=== PATIENT | female | born 1965 | race Caucasian/White ===

== ENCOUNTER → 2016-12-25 | Outpatient (CLI) | payer OTHER ==
[~2016-12-25] MED LIST: ACET-1256 PO; ATOR-24 PO; BIOT1TAB5 PO; BUTA1CAP20 PO; DULA0.5I; ESTCR EXT; FRCT/ PO; GLIP-199 PO; GLIP5TAB11 PO; HYDR-3419 PO; PANT40TA PO; PROP20TA67 PO; RANI150T3 PO; RANI1TAB77 PO; SERT-234 PO; SUMA100T16 PO; SUMA50TA15 PO
[2016-12-25 08:22] LABS: ALT/SGPT 27 U/L (12-78); BLOOD UREA NITROGEN 6 mg/dl (7-18); BUN/CREATININE RATIO 8.3 (10-20); CALCIUM 9.4 mg/dl (8.5-10.1); CARBON DIOXIDE 24 mmol/L (21-32); CHLORIDE 102 mmol/L (98-107); CREATININE 0.71 mg/dl (0.60-1.20); GLUCOSE 144 mg/dl (70-99); POTASSIUM 4.4 mmol/L (3.5-5.1); SODIUM 138 mmol/L (136-145)
[2016-12-25 08:33] LABS: ALB/GLOB RATIO 0.9 (0.9-2); ALKALINE PHOSPHATASE 97 U/L (45-117); AST/SGOT 15 U/L (15-37); CHOLESTEROL 170 mg/dl (0-200); CHOLESTEROL/HDL RATIO 4.9; HDL CHOLESTEROL 35 mg/dl; LDL CHOLESTEROL CALCULATED 92 mg/dl; TRIGLYCERIDES 217 mg/dl (0-150); VERY LOW DENSITY LIPOPROT CALC 43 mg/dl
[2016-12-25 09:10] LABS: RATIO 7.1 mcg/mg (0-30.0)
[2016-12-25 10:01] LABS: ESTIMATED AVERAGE GLUCOSE 148 mg/dl; HA1C FLAG Normal (Normal)
== END | disposition home or self-care (01) ==
LOC: C.LABSPEC 07:38
PROVIDERS: ATTEND Family Medicine
DX: E11.65 Type 2 diabetes mellitus with hyperglycemia (principal); E78.5 Hyperlipidemia, unspecified

== ENCOUNTER → 2017-01-24 | Outpatient (CLI) | payer OTHER ==
[~2017-01-24] VITALS: Ht 165.1 cm; Wt 135.9 kg
[2017-01-24 16:12] VITALS: BP 146/89; PULSE 81; Ht 165.1 cm; Wt 135.9 kg
== END | disposition home or self-care (01) ==
LOC: C.NEUR 14:50
PROVIDERS: ATTEND Internal Medicine Pulmonary Disease
DX: G47.33 Obstructive sleep apnea (adult) (pediatric) (principal)

== ENCOUNTER 2017-07-01 07:45 | Emergency (ER) | payer OTHER ==
[~2017-07-01] VITALS: Ht 165.1 cm; Wt 134.7 kg
[~2017-07-01 07:45] MED LIST changes: -BUTA1CAP20 PO; -DULA0.5I; -ESTCR EXT; -FRCT/ PO; -GLIP-199 PO; -PANT40TA PO; -RANI150T3 PO; -RANI1TAB77 PO; -SUMA100T16 PO
[2017-07-01 07:47] VITALS: TEMP 36.4; Ht 165.1 cm; Wt 134.7 kg
[2017-07-01] MEDS ORDERED: ONDANSETRON INJ 2 MG/ML 2 ML VIAL IV STA ×2 (08:05→10:08)
[2017-07-01] MEDS ORDERED: SODIUM CHLORIDE 0.9% 1000ML 1,000 ML IV STA (08:05)
[2017-07-01] MEDS ORDERED: SODIUM CHLORIDE 0.9% 500ML 500 ML IV STA (08:05)
[2017-07-01] MEDS ORDERED: MoRPHine SULFATE 4 MG/ML 1 ML CARP\\VIAL IV STA ×2 (08:05→10:17)
--- NOTE | 2017-07-01 08:12 | EMERGENCY ROOM VISIT NOTE ---
History Report prepared by Janeen: Ewa Escalera Under the Supervision of: Dr. Uma Almonte M.D. First contact with patient: 08:03 Chief Complaint: CHEST PAIN Stated Complaint: ABD./CHEST PAIN Nursing Triage Summary: patient states she started with chest pains over the past couple days. pain radiated into right arm today. nausea and vomiting associated with the pain. "I think it may be my gallbladder" History of Present Illness The patient is a 52 year old female who presents to the Emergency Room with complaints of intermittent central abdominal pain that began one month ago. She currently rates her discomfort as an 8/10 in severity. The patient reports that intermittently she has been having abdominal for the past month. She states that she had previously noticed pain radiating down her left arm, but today she noticed pain radiating into her back and down her right arm. The patient additionally associates nausea and vomiting with her symptoms today. She states that she believes it is her gallbladder, noting that she has an appointment with her primary care physician in a few days. The patient states that her pain worsened last evening. She reports increased pain with deep breathing. The patient states that she only ate a piece of butter bread last night, noting that she was not feeling well. She reports a history of a total hysterectomy, appendectomy, and diabetes. The patient denies any history of a previous [place] or stroke. She denies being a smoker. The patient states that she traveled to [place] in April. She denies any urinary symptoms. Source of History: patient Onset: one month ago Position: abdomen Symptom Intensity: 8/10 Timing: intermittent Modifying Factors (Worsening): breathing (deep) Associated Symptoms: + nausea, + vomiting, No urinary symptoms Review of Systems See HPI for pertinent positives & negatives. A total of 10 systems reviewed and were otherwise negative. Past Medical & Surgical Medical Problems: (1) Brain lesion (2) Depressive Disorder Nec (3) Diverticulosis Colon (W/O Ment Of Hemorrhage) (4) Hx-Analgesic Allergy (5) Hx-Drug Allergy Nec (6) Hyperlipidemia Nec/Nos (7) Hypertension Nos (8) Personal History Of Colonic Polyps (9) TIA (transient ischemic attack) Family History Cancer MOTHER Diabetes mellitus Heart disease Hypertension Kidney disease Kidney stones Social History Smoking Status: Never Smoker Alcohol Use: none Drug Use: none Marital Status: Housing Status: lives with family Occupation Status: employed Current/Historical Medications Scheduled Acetaminophen (Tylenol), 1 TAB PO Q8 Atorvastatin (Lipitor), 40 MG PO DAILY Dulaglutide (Trulicity), 1.5 MG WK Estradiol Vaginal (Estrace), 1 APPLN EXT WK Glipizide (Glucotrol), 1 TAB PO DAILY Pantoprazole (Protonix), 40 MG PO DAILY Propranolol (Inderal), 20 MG PO BID Sertraline (Zoloft), 150 MG PO DAILY Sumatriptan Succinate (Imitrex), 100 MG PO PRN Scheduled PRN Iyvxhybknu-Bznjouwmgksud-Ypvxs (Butalbital/APAP/Caffeine 50-300-40 mg), 1 CAP PO DAILY PRN for Migraine Ranitidine Hcl (Zantac), 150 MG PO BID PRN for gastritis Allergies Coded Allergies: Aspirin (Verified Allergy, Severe, THROAT CLOSES FACE SWELLED, 07/01/17) Ibuprofen (Verified Allergy, Severe, THROAT CLOSED, FACE SWELLED, 07/01/17) Penicillins (Verified Allergy, Unknown, HAD KEFLEX IN PAST WITHOUT PROB- PENICILLIN GIVES HIVES, 07/01/17) Physical Exam Vital Signs Date Time Temp Pulse Resp B/P (MAP) Pulse Ox O2 Delivery O2 Flow Rate FiO2 07/01/17 12:12 65 16 121/69 97 07/01/17 11:17 63 16 143/72 94 Room Air 07/01/17 10:28 67 22 132/86 96 Room Air 07/01/17 10:00 Room Air 07/01/17 09:52 62 20 110/69 95 Room Air 07/01/17 09:09 69 16 138/73 Room Air 07/01/17 08:29 70 20 141/80 98 Room Air 07/01/17 08:07 75 07/01/17 07:55 Room Air 07/01/17 07:47 96 Room Air 07/01/17 07:47 36.4 86 24 154/112 96 Room Air Physical Exam Vital signs reviewed. General: Obese. Well-appearing female, in some discomfort. HEENT: No scleral icterus, PERRLA, neck supple. Atraumatic. Cardiovascular: Regular rate and rhythm, no extra sounds. Pulmonary: Clear to auscultation bilaterally, normal work of breathing. Abdomen: Soft, tender to palpation over the right upper quadrant and epigastric region, nondistended, positive bowel sounds. Musculoskeletal: Atraumatic, minimal peripheral edema. Neurologic: Patient awake alert and oriented x 3 Skin: Warm, dry, no rash Medical Decision & Procedures ER Provider Diagnostic Interpretation: Radiology results as stated below per my review and radiologist interpretation: GALLBLADDER-ABD LIMITED CLINICAL HISTORY: RUQ pain pain. Nausea. TECHNIQUE: Ultrasound COMPARISON STUDY: None FINDINGS: Normal gallbladder. Common bile duct 4 mm. Fatty infiltration of liver. Poor visibility of the pancreas. Right kidney measures 12 cm maximum dimension. It is negative for hydronephrosis. IMPRESSION: Fatty infiltration of liver. Otherwise normal exam The above report was generated using voice recognition software. It may contain grammatical, syntax or spelling errors. Electronically signed by: Tom Rodriguez M.D. 07/01/2017 9:00 AM Dictated Date/Time: 07/01/2017 8:59 AM CHEST ONE VIEW PORTABLE CLINICAL HISTORY: RUQ/CP pain pain COMPARISON STUDY: 12/23/2014 FINDINGS: Mild stable cardiomegaly. Lungs are clear. Diaphragms are smooth. The calcific angles are sharp. IMPRESSION: Mild stable cardiomegaly. Otherwise negative study The above report was generated using voice recognition software. It may contain grammatical, syntax or spelling errors. Electronically signed by: Tom Rodriguez M.D. 07/01/2017 8:21 AM Dictated Date/Time: 07/01/2017 8:20 AM ABD/PELVIS IV CONTRAST ONLY CLINICAL HISTORY: 52 years-old Female presenting with epigastric abd pain, nausea, symptoms for 1 month. TECHNIQUE: Multidetector CT of the abdomen and pelvis was performed after the administration of intravenous contrast. IV contrast: 93 mL of Optiray 320. A dose lowering technique was used consistent with the principles of ALARA (as low as reasonably achievable). COMPARISON: Correlation made to ultrasound performed the same day. CT DOSE (mGy.cm): The estimated cumulative dose is 1880.83 mGy.cm. FINDINGS: Director Of People topogram: Gastric banding noted. Lung bases: Lung bases clear. No pericardial or pleural effusion. Liver: Normal morphology. Liver density suggestive of hepatic steatosis. No focal lesion. Patent hepatic vasculature. Biliary: No intrahepatic or extrahepatic biliary ductal dilatation. Gallbladder contains gallstones. Pancreas: Mild parenchymal atrophy. Spleen: Top normal in size. Adrenal glands: Normal. Kidneys and ureters: Normal. No hydronephrosis. Bladder: Incompletely evaluated secondary to underdistention. Pelvic organs: Uterus surgically absent. Bowel: Evidence of gastric banding. Minimal fluid and debris in the distal esophagus. No bowel obstruction. The superficial component of the gastric banding device is normal in appearance without associated fluid. The catheter appears intact. Peritoneal cavity: No free fluid or intraperitoneal gas. Vasculature: Atherosclerosis of the normal caliber abdominal aorta. IVC patent. Lymph nodes: No enlarged lymph nodes in the abdomen or pelvis. Abdominal wall: Nonspecific infiltration of the subcutaneous tissue of the lumbar region. Musculoskeletal: Degenerative changes of the spine. Degenerative changes of the sacroiliac joints and pubic symphysis. IMPRESSION: 1. Postsurgical changes of gastric banding. No bowel obstruction or other complication. 2. Hepatic steatosis. Electronically signed by: Everett Ma M.D. 07/01/2017 11:27 AM Dictated Date/Time: 07/01/2017 10:59 AM Laboratory Results 07/01/17 08:09 Red Blood Count 4.56, Mean Corpuscular Volume 90.1, Mean Corpuscular Hemoglobin 30.7, Mean Corpuscular Hemoglobin Concent 34.1, Mean Platelet Volume 9.3, Neutrophils (%) (Auto) 73.6, Lymphocytes (%) (Auto) 19.3, Monocytes (%) (Auto) 4.6, Eosinophils (%) (Auto) 2.0, Basophils (%) (Auto) 0.3, Neutrophils # (Auto) 6.82, Lymphocytes # (Auto) 1.79, Monocytes # (Auto) 0.43, Eosinophils # (Auto) 0.19, Basophils # (Auto) 0.03 07/01/17 08:09 Test 07/01/17 08:09 07/01/17 08:37 07/01/17 10:27 White Blood Count 9.28 K/uL (4.8-10.8) Red Blood Count 4.56 M/uL (4.2-5.4) Hemoglobin 14.0 g/dL (12.0-16.0) Hematocrit 41.1 % (37-47) Mean Corpuscular Volume 90.1 fL (80-100) Mean Corpuscular Hemoglobin 30.7 pg (25-34) Mean Corpuscular Hemoglobin Concent 34.1 g/dl (32-36) Platelet Count 252 K/uL (130-400) Mean Platelet Volume 9.3 fL (7.4-10.4) Neutrophils (%) (Auto) 73.6 % Lymphocytes (%) (Auto) 19.3 % Monocytes (%) (Auto) 4.6 % Eosinophils (%) (Auto) 2.0 % Basophils (%) (Auto) 0.3 % Neutrophils # (Auto) 6.82 K/uL (1.4-6.5) Lymphocytes # (Auto) 1.79 K/uL (1.2-3.4) Monocytes # (Auto) 0.43 K/uL (0.11-0.59) Eosinophils # (Auto) 0.19 K/uL (0-0.5) Basophils # (Auto) 0.03 K/uL (0-0.2) RDW Standard Deviation 44.6 fL (36.4-46.3) RDW Coefficient of Variation 13.5 % (11.5-14.5) Immature Granulocyte % (Auto) 0.2 % Immature Granulocyte # (Auto) 0.02 K/uL (0.00-0.02) D-Dimer 300 ug/L FEU (0-500) Anion Gap 8.0 mmol/L (3-11) Est Creatinine Clear Calc Drug Dose 127.1 ml/min Estimated GFR () 111.6 Estimated GFR (Non- 96.3 BUN/Creatinine Ratio 11.0 (10-20) Calcium Level 10.0 mg/dl (8.5-10.1) Magnesium Level 2.3 mg/dl (1.8-2.4) Total Bilirubin 0.5 mg/dl (0.2-1) Direct Bilirubin 0.1 mg/dl (0-0.2) Aspartate Amino Transf (AST/SGOT) 16 U/L (15-37) Alanine Aminotransferase (ALT/SGPT) 33 U/L (12-78) Alkaline Phosphatase 97 U/L (45-117) Total Creatine Kinase 44 U/L (26-192) Creatine Kinase MB 0.9 ng/ml (0.5-3.6) Creatine Kinase MB Ratio 2.0 (0-3.0) Total Protein 7.7 gm/dl (6.4-8.2) Albumin 3.7 gm/dl (3.4-5.0) Lipase 131 U/L (73-393) Urine Color YELLOW Urine Appearance CLEAR (CLEAR) Urine pH 5.0 (4.5-7.5) Urine Specific [place] 1.022 (1.000-1.030) Urine Protein NEG (NEG) Urine Glucose (UA) NEG (NEG) Urine Ketones NEG (NEG) Urine Occult Blood NEG (NEG) Urine Nitrite NEG (NEG) Urine Bilirubin NEG (NEG) Urine Urobilinogen NEG (NEG) Urine Leukocyte Esterase NEG (NEG) Bedside Troponin I < 0.030 ng/ml (0-0.045) Laboratory results per my review. Medications Administered Medications (Trade) Dose Ordered Sig/Annelise Route Start Time Stop Time Status Last Admin Dose Admin Sodium Chloride 500 ml @ 999 mls/hr Q31M STAT IV 07/01/17 08:05 07/01/17 08:35 DC 07/01/17 08:25 999 MLS/HR Sodium Chloride 1,000 ml @ 125 mls/hr Q8H STAT IV 07/01/17 08:05 07/01/17 12:34 DC 07/01/17 09:07 125 MLS/HR Morphine Sulfate (MoRPHine SULFATE INJ) 4 mg NOW STAT IV 07/01/17 08:05 07/01/17 08:08 DC 07/01/17 08:25 4 MG Ondansetron HCl (Zofran Inj) 4 mg NOW STAT IV 07/01/17 08:05 07/01/17 08:08 DC 07/01/17 08:25 4 MG Ondansetron HCl (Zofran Inj) 4 mg NOW STAT IV 07/01/17 10:08 07/01/17 10:10 DC 07/01/17 10:23 4 MG Morphine Sulfate (MoRPHine SULFATE INJ) 4 mg NOW STAT IV 07/01/17 10:17 07/01/17 10:18 DC 07/01/17 10:23 4 MG Ranitidine HCl (zANTac IV) 50 mg NOW STAT IV 07/01/17 11:18 07/01/17 11:19 DC 07/01/17 11:26 50 MG ECG Indication: abdominal pain Rate (beats per minute): 67 Rhythm: normal sinus Findings: no acute ischemic change, no ectopy ED Course 0804: Past medical records reviewed. The patient was evaluated in room A4B. A complete history and physical examination was performed. 0805: Ordered Zofran Inj 4 mg IV, Morphine Sulfate 4 mg IV, Sodium Chloride 1000 ml @ 125 mls/hr IV, Sodium Chloride 500 ml @ 999 mls/hr IV. 1008: I reevaluated the patient and she is still experiencing pain and is nauseous. She is going to have a CT scan. Ordered Zofran Inj 4 mg IV. 1017: Ordered Morphine Sulfate 4 mg IV. 1118: Ordered Zantac IV 50 mg IV. 1144: I reevaluated the patient and she is resting comfortably. I discussed the exam findings with her and I discussed the treatment plan. She verbalized complete understanding and agreement. She is ready to go home shortly. Medical Decision Differential diagnosis: Etiologies such as appendicitis, diverticulitis, PUD, biliary pathology, UTI, pancreatitis, obstruction, mesenteric ischemia, aortic pathology, infections, inflammatory bowel disease, renal colic, PE, as well as others were entertained. This patient was evaluated and appeared to be in some discomfort. IV access was obtained and laboratory work was drawn. The patient was medicated with IV morphine and Zofran. She was hydrated with normal saline solution. Chest x- ray was obtained and is negative. Ultrasound of the right upper quadrant is negative for acute cholecystitis. EKG reveals no evidence of dysrhythmia or acute ischemic change. Laboratory work reveals negative cardiac enzymes 2 as well as a negative d-dimer. CT scan of the abdomen was performed and the patient had an increase in her pain. This CT is relatively unrevealing with the exception of a lap band present. The patient was given a second dose of IV morphine and Zofran. She was given IV Zantac. I am suspicious that this may be a peptic ulcer. The patient was advised of the findings. She agrees to follow-up with gastroenterology. [facility] gastric radiology was contacted by case management and an appointment for tomorrow was arranged with DOLLY Stacy. Patient will return to the ER for worsening of symptoms or any medical concerns. Medication Reconcilliation Current Medication List: was personally reviewed by me Blood Pressure Screening Patient's blood pressure: Elevated blood pressure Blood pressure disposition: Elevated BP felt to be situational, Did not require urgent referral Impression Primary Impression: Epigastric abdominal pain Additional Impression: History of laparoscopic adjustable gastric banding Scribe Attestation The scribe's documentation has been prepared under my direction and personally reviewed by me in its entirety. I confirm that the note above accurately reflects all work, treatment, procedures, and medical decision making performed by me. Departure Information Dispostion Home / Self-Care Prescriptions Ranitidine Hcl (ZANTAC) 150 Mg Tab 150 MG PO BID Y for gastritis, #60 TAB Prov: Uma Almonte M.D. 07/01/17 Pantoprazole (Protonix) 40 Mg Tab 40 MG PO DAILY, #30 TAB Prov: Uma Almonte M.D. 07/01/17 Referrals Doris Wright C.R.N.P. Kolonich, Kimberly, M.D. Forms Call Back Authorization, HOME CARE DOCUMENTATION FORM, IMPORTANT VISIT INFORMATION Patient Instructions [facility] Additional Instructions Diagnosis: Epigastric abdominal pain, history of lap band. Protonix 40 mg daily for the next 30 days. Zantac 150 mg twice daily as needed for additional symptoms. Minimize any NSAID use, avoid alcohol, coffee, soda. Maintain a bland diet. Follow-up with Dr. Valente's office, Friday with DOLLY Toribio as scheduled for you by case management. Return to the ER for worsening of symptoms or any medical concerns. Problem Qualifiers
[2017-07-01 08:18] LABS: BASO % 0.3 %; BASO ABS # 0.03 K/uL (0-0.2); COMPLETE YES; HEMATOCRIT 41.1 % (37-47); IG% 0.2 %; LYMPH % 19.3 %; LYMPH ABS # 1.79 K/uL (1.2-3.4); MEAN CELL VOLUME 90.1 fL (80-100); MEAN CORPUSCULAR HEMOGLOBIN 30.7 pg (25-34); MEAN CORPUSCULAR HGB CONC 34.1 g/dl (32-36); MEAN PLATELET VOLUME 9.3 fL (7.4-10.4); MONO % 4.6 %; NEUT % 73.6 %; PLATELET COUNT 252 K/uL (130-400); RED BLOOD COUNT 4.56 M/uL (4.2-5.4); WHITE BLOOD COUNT 9.28 K/uL (4.8-10.8)
--- NOTE | 2017-07-01 08:22 | DIAGNOSTIC IMAGING REPORT ---
CHEST ONE VIEW PORTABLE CLINICAL HISTORY: RUQ/CP pain pain COMPARISON STUDY: 12/23/2014 FINDINGS: Mild stable cardiomegaly. Lungs are clear. Diaphragms are smooth. The calcific angles are sharp. IMPRESSION: Mild stable cardiomegaly. Otherwise negative study The above report was generated using voice recognition software. It may contain grammatical, syntax or spelling errors. Electronically signed by: Tom Rodriguez M.D. 07/01/2017 8:21 AM Dictated Date/Time: 07/01/2017 8:20 AM
[2017-07-01 08:39] LABS: CREATININE 0.72 mg/dl (0.60-1.20); MAGNESIUM 2.3 mg/dl (1.8-2.4); POTASSIUM 4.4 mmol/L (3.5-5.1)
[2017-07-01 08:55] LABS: URINE APPEARANCE CLEAR (CLEAR); URINE BILIRUBIN NEG (NEG); URINE COLOR YELLOW; URINE NITRITE NEG (NEG); URINE SPECIFIC GRAVITY 1.022 (1.000-1.030); UROBILINOGEN NEG (NEG); ZZUR CULT IF INDIC CLEAN CATCH NO
--- NOTE | 2017-07-01 09:01 | DIAGNOSTIC IMAGING REPORT ---
GALLBLADDER-ABD LIMITED CLINICAL HISTORY: RUQ pain pain. Nausea. TECHNIQUE: Ultrasound COMPARISON STUDY: None FINDINGS: Normal gallbladder. Common bile duct 4 mm. Fatty infiltration of liver. Poor visibility of the pancreas. Right kidney measures 12 cm maximum dimension. It is negative for hydronephrosis. IMPRESSION: Fatty infiltration of liver. Otherwise normal exam The above report was generated using voice recognition software. It may contain grammatical, syntax or spelling errors. Electronically signed by: Tom Rodriguez M.D. 07/01/2017 9:00 AM Dictated Date/Time: 07/01/2017 8:59 AM
[2017-07-01 09:05] LABS: MANUAL MICROSCOPIC REQUIRED? NO; REVIEW REQ? NO
[2017-07-01] MEDS ORDERED: BUTA1CAP20 PO (09:15)
[2017-07-01] MEDS ORDERED: DULA0.5I (09:15)
[2017-07-01] MEDS ORDERED: ESTCR EXT (09:15)
[2017-07-01] MEDS ORDERED: OPTIRAY 320 IV PRN (10:15)
[2017-07-01] MEDS ORDERED: RANITIDINE HCL 50 MG/100 ML D5W IV STA (11:18)
--- NOTE | 2017-07-01 11:28 | DIAGNOSTIC IMAGING REPORT ---
ABD/PELVIS IV CONTRAST ONLY CLINICAL HISTORY: 52 years-old Female presenting with epigastric abd pain, nausea, symptoms for 1 month. TECHNIQUE: Multidetector CT of the abdomen and pelvis was performed after the administration of intravenous contrast. IV contrast: 93 mL of Optiray 320. A dose lowering technique was used consistent with the principles of ALARA (as low as reasonably achievable). COMPARISON: Correlation made to ultrasound performed the same day. CT DOSE (mGy.cm): The estimated cumulative dose is 1880.83 mGy.cm. FINDINGS: Development Manager topogram: Gastric banding noted. Lung bases: Lung bases clear. No pericardial or pleural effusion. Liver: Normal morphology. Liver density suggestive of hepatic steatosis. No focal lesion. Patent hepatic vasculature. Biliary: No intrahepatic or extrahepatic biliary ductal dilatation. Gallbladder contains gallstones. Pancreas: Mild parenchymal atrophy. Spleen: Top normal in size. Adrenal glands: Normal. Kidneys and ureters: Normal. No hydronephrosis. Bladder: Incompletely evaluated secondary to underdistention. Pelvic organs: Uterus surgically absent. Bowel: Evidence of gastric banding. Minimal fluid and debris in the distal esophagus. No bowel obstruction. The superficial component of the gastric banding device is normal in appearance without associated fluid. The catheter appears intact. Peritoneal cavity: No free fluid or intraperitoneal gas. Vasculature: Atherosclerosis of the normal caliber abdominal aorta. IVC patent. Lymph nodes: No enlarged lymph nodes in the abdomen or pelvis. Abdominal wall: Nonspecific infiltration of the subcutaneous tissue of the lumbar region. Musculoskeletal: Degenerative changes of the spine. Degenerative changes of the sacroiliac joints and pubic symphysis. IMPRESSION: 1. Postsurgical changes of gastric banding. No bowel obstruction or other complication. 2. Hepatic steatosis. Electronically signed by: Everett Ma M.D. 07/01/2017 11:27 AM Dictated Date/Time: 07/01/2017 10:59 AM
[2017-07-01] MEDS ORDERED: PANT40TA PO (12:07)
[2017-07-01] MEDS ORDERED: RANI150T3 PO (12:08)
[2017-07-01 12:12] VITALS: BP 121/69; PULSE 65; O2SAT 97
[2017-07-10] MEDS ORDERED: PANT40TA PO (15:50)
[2017-07-10] MEDS ORDERED: FRCT/ PO (15:50)
[2017-07-10] MEDS ORDERED: RANI1TAB77 PO (16:08)
[2017-07-10] MEDS ORDERED: SUMA100T16 PO (16:08)
[2017-07-10] MEDS ORDERED: GLIP-199 PO (16:08)
== END 2017-07-01 12:13 | disposition home or self-care (01) ==
LOC: C.EDB 07:46 → C.EDA 12:13
DX: R10.13 Epigastric pain (principal); Z98.84 Bariatric surgery status; E11.9 Type 2 diabetes mellitus without complications; F32.9 Major depressive disorder, single episode, unspecified; K57.30 Diverticulosis of large intestine without perforation or abscess without bleeding; E78.5 Hyperlipidemia, unspecified; I10 Essential (primary) hypertension; G93.9 Disorder of brain, unspecified; E66.9 Obesity, unspecified; Z90.710 Acquired absence of both cervix and uterus; Z86.73 Personal history of transient ischemic attack (TIA), and cerebral infarction without residual deficits; Z83.3 Family history of diabetes mellitus; Z82.49 Family history of ischemic heart disease and other diseases of the circulatory system; Z84.1 Family history of disorders of kidney and ureter

== ENCOUNTER → 2017-07-10 | Outpatient (CLI) | payer OTHER ==
[~2017-07-10] MED LIST changes: -BIOT1TAB5 PO; +BUTA1CAP20 PO; +DULA0.5I; +ESTCR EXT; +FRCT/ PO; +GLIP-199 PO; -HYDR-3419 PO; +PANT40TA PO; +RANI150T3 PO; +RANI1TAB77 PO; +SINCALIDE IV ONE; +SODIUM CHLORIDE 0.9% IV ONE; +SUMA100T16 PO
--- NOTE | 2017-07-10 10:07 | DIAGNOSTIC IMAGING REPORT ---
NUCLEAR MEDICINE HEPATOBILIARY SCAN WITH GALLBLADDER EJECTION FRACTION CLINICAL HISTORY: Epigastric pain, nausea and vomiting. COMPARISON: CT of the abdomen and pelvis and right upper quadrant ultrasound July 01, 2017. TECHNIQUE: 5.7 mCi of technetium 99m Choletec IV was injected at 7:55 AM on July 10, 2017. Immediately following injection, imaging of the abdomen was carried out for 60 minutes in the anterior projection. At this time, 2.7 mcg of Sincalide was injected IV as per protocol. Imaging was performed for an additional 45 minutes to estimate a gallbladder ejection fraction. FINDINGS: Hepatic uptake of radiotracer is prompt and homogeneous. Activity is first identified within the gallbladder and common bile duct at 10 minutes. Small bowel activity is first identified at 15 minutes. Gallbladder ejection fraction was estimated at 68%. Normal is greater than 30-35%. IMPRESSION: 1. No evidence of acute or chronic cholecystitis. 2. Normal gallbladder ejection fraction of 60%. Electronically signed by: Will Wilson M.D. 07/10/2017 10:06 AM Dictated Date/Time: 07/10/2017 10:03 AM
== END | disposition home or self-care (01) ==
LOC: C.NUCL 07:39
PROVIDERS: ATTEND Registered Nurse
DX: R10.13 Epigastric pain (principal); R11.2 Nausea with vomiting, unspecified

== ENCOUNTER → 2017-07-18 | Day surgery (SDC) | payer OTHER ==
[2017-07-10 15:52] VITALS: Ht 165.1 cm; Wt 88.6 kg
[~2017-07-18] VITALS: Ht 165.1 cm; Wt 88.6 kg
[~2017-07-18] MED LIST changes: +FENTANYL CITRATE INJ 50 MCG/1 ML 2 ML VIAL ONE; -FRCT/ PO; -GLIP5TAB11 PO; +LIDOCAINE HCL 2% 2 ML VIAL (20MG/ML) ONE; +PROPOFOL IV EMULSION 10 MG/ML 20 ML VIAL IV ONE; -RANI150T3 PO; -SINCALIDE IV ONE; +SODIUM CHLORIDE 0.9% 500ML 500 ML IV ONE; -SODIUM CHLORIDE 0.9% IV ONE; -SUMA50TA15 PO
--- NOTE | 2017-07-18 09:45 | Endo History and Physical ---
History & Physical Date of Service: Jul 18, 2017. Chief Complaint: EPIGASTRIC PAIN Referring Physician: DR. DIGGS History of Present Illness 52 yo CF who presents for EGD secondary to epigastric abdominal pain. Past Medical History Arthritis Past Surgical History Hx Cardiac Surgery: No Hx Internal Defibrillator: No Hx Pacemaker: No Hx Abdominal Surgery: Yes (C SECTION X 2,GASTRIC BAND SURG,HYSTERECTOMY BSO, APPENDECTOMY) Hx Post-Op Nausea and Vomiting: No Hx Cancer Surgery: No Hx Thoracic Surgery: No Hx Orthopedic: No Hx Urinary Tract Surgery: No Family History None Social History Smoking Status: Never Smoker Hx Substance Use: No Hx Alcohol Use: Yes (RARELY) Allergies Coded Allergies: Aspirin (Verified Allergy, Severe, THROAT CLOSES FACE SWELLED, 07/10/17) Ibuprofen (Verified Allergy, Severe, THROAT CLOSED, FACE SWELLED, 07/10/17) Penicillins (Verified Allergy, Unknown, HAD KEFLEX IN PAST WITHOUT PROB- PENICILLIN GIVES HIVES, 07/10/17) Current Medications Reported Home Medications Medications Dose Route/Sig Max Daily Dose Days Date Category Dose Instructions Imitrex (Sumatriptan Succinate) 100 Mg Tab 200 Mg PO PRN 07/10/17 Reported Ranit[address] (Ranitidine HCl) 150 Mg Tab 150 Mg PO QAM 07/10/17 Reported Protonix (Pantoprazole Sodium) 40 Mg Tab 40 Mg PO QAM 07/10/17 Reported Estrace (Estradiol Vaginal) 0.1 Mg/Gm Cre 1 Appln EXT WK 07/01/17 Reported Trulicity (Dulaglutide) 1.5 Mg/0.5 Ml Inj 1.5 Mg WK 07/01/17 Reported TUESDAYS Butalbital/APAP/Caffeine 50-300-40 mg (Woftizjqsk-Yjrshnryajrsl-Jhtqk) 1 Cap Cap 1 Cap PO DAILY PRN 07/01/17 Reported Inderal (Propranolol HCl) 20 Mg Tab 20 Mg PO BID 02/09/16 Rx Tylenol (Acetaminophen) 500 Mg Tab 1 Tab PO Q8 PRN 3 02/08/16 Reported Lipitor (Atorvastatin Calcium) 40 Mg Tab 40 Mg PO QAM 01/14/14 Reported Zoloft (Sertraline HCl) 100 Mg Tab 150 Mg PO QAM 11/14/08 Reported Vital Signs Weight (Kilograms): 88.64 Height (Feet): 5 Height (Inches): 5 Physical Exam General Appearance: WD/WN, no apparent distress Respiratory/Chest: Auscultation: breath sounds normal Cardiovascular: Heart Auscultation: RRR Abdomen: Bowel Sounds: normal Inspection & Palpation: soft, non-distended, no tenderness, guarding & rebound Assessment and Plan Assessment: 52 yo CF who presents for EGD secondary to epigastric abdominal pain. Plan: Proceed with EGD.
--- NOTE | 2017-07-18 10:34 | Discharge Instructions ---
Endoscopy Patient Instructions Date / Procedure(s) Performed Jul 18, 2017. EGD Allergy Information Coded Allergies: Aspirin (Verified Allergy, Severe, THROAT CLOSES FACE SWELLED, 07/10/17) Ibuprofen (Verified Allergy, Severe, THROAT CLOSED, FACE SWELLED, 07/10/17) Penicillins (Verified Allergy, Unknown, HAD KEFLEX IN PAST WITHOUT PROB- PENICILLIN GIVES HIVES, 07/10/17) Discharge Date / Findings Jul 18, 2017. Gastritis s/p biopsies Esophageal brushings Medication Instructions OK to resume all medications today as prescribed Reported Home Medications Medications Dose Route/Sig Max Daily Dose Days Date Category Dose Instructions Imitrex (Sumatriptan Succinate) 100 Mg Tab 200 Mg PO PRN 07/10/17 Reported Ranitidine [address] (Ranitidine HCl) 150 Mg Tab 150 Mg PO QAM 07/10/17 Reported Protonix (Pantoprazole Sodium) 40 Mg Tab 40 Mg PO QAM 07/10/17 Reported Estrace (Estradiol Vaginal) 0.1 Mg/Gm Cre 1 Appln EXT WK 07/01/17 Reported Trulicity (Dulaglutide) 1.5 Mg/0.5 Ml Inj 1.5 Mg WK 07/01/17 Reported TUESDAYS Butalbital/APAP/Caffeine 50-300-40 mg (Idwdbfqong-Cydvfndwilrib-Ysawl) 1 Cap Cap 1 Cap PO DAILY PRN 07/01/17 Reported Inderal (Propranolol HCl) 20 Mg Tab 20 Mg PO BID 02/09/16 Rx Tylenol (Acetaminophen) 500 Mg Tab 1 Tab PO Q8 PRN 3 02/08/16 Reported Lipitor (Atorvastatin Calcium) 40 Mg Tab 40 Mg PO QAM 01/14/14 Reported Zoloft (Sertraline HCl) 100 Mg Tab 150 Mg PO QAM 11/14/08 Reported Provider Instructions Activity Restrictions - No exercising or heavy lifting for 24 hours. - Do not drink alcohol the day of the procedure. - Do not drive a car or operate machinery until the day after the procedure. - Do not make any important decisions or sign important papers in 24 hours after the procedure. Following Day: - Return to full activity which may include returning to work/school. Diet Start your diet with liquids and light foods (jello, soup, juice, toast). Then eat your usual diet if not nauseated. Treatment For Common After Affects For mild abdominal pain, bloating, or excessive gas: - Rest - Eat lightly - Lie on right side Follow-Up Information Follow-up with DR. DIGGS as scheduled Anesthesia Information What You Should Know You have had a procedure that required some medicine to reduce anxiety and discomfort. This treatment is called moderate sedation. After receiving the treatment, you may be sleepy, but you will be able to breathe on your own. The effects of the treatment may last for several hours. Follow these instructions along with Activity/Diet recommendations noted above: * Do NOT do anything where dizziness or clumsiness would be dangerous. * Rest quietly at home today, then you can be up and about tomorrow. * Have a responsible person stay with you the rest of today. * You may have had an I.V. today. If so, you may take the dressing off later today. Recommendations Call your doctor if: * Trouble breathing * Continuous vomiting for more than 24 hours * Temperature above 101 degrees * Severe abdominal pain or bloating * Pain not relieved by pain medicine ordered * There is increased drainage or redness from any incision * A large amount of rectal bleeding greater than 2-3 tablespoons. (If you had a polyp/s removed or have hemorrhoids, a small amount of blood - from the rectum is to be expected.) * You have any unanswered questions or concerns. IN THE EVENT OF A SERIOUS EMERGENCY, GO TO THE NEAREST EMERGENCY ROOM Your discharge instructions were prepared by provider Clint Valente. Patient Instructions Signature Page Sofia Dixon Patient (or Guardian) Signature/Date: I have read and understand the instructions given to me by my caregivers. Caregiver/RN/Doctor Signature/Date: The above-named patient and/or guardian has received patient instructions on this date. + Original Patient Signature Page (only) stays with chart. Please make copy for patient.
--- NOTE | 2017-07-18 10:41 | GI REPORT ---
Procedure Date: 07/18/2017 10:20 AM Procedure: Upper GI endoscopy Indications: Epigastric abdominal pain Medicines: Monitored Anesthesia Care Complications: No immediate complications. Estimated Blood Loss: Estimated blood loss: none. Procedure: Pre-Anesthesia Assessment: - Prior to the procedure, a History and Physical was performed, and patient medications and allergies were reviewed. The patient's tolerance of previous anesthesia was also reviewed. The risks and benefits of the procedure and the sedation options and risks were discussed with the patient. All questions were answered, and informed consent was obtained. Prior Anticoagulants: The patient has taken no previous anticoagulant or antiplatelet agents. ASA Grade Assessment: III - A patient with severe systemic disease. After reviewing the risks and benefits, the patient was deemed in satisfactory condition to undergo the procedure. After obtaining informed consent, the endoscope was passed under direct vision. Throughout the procedure, the patient's blood pressure, pulse, and oxygen saturations were monitored continuously. The On-site loaner was introduced through the mouth, and advanced to the second part of duodenum. The upper GI endoscopy was accomplished without difficulty. The patient tolerated the procedure well. Findings: Patchy candidiasis was found in the lower third of the esophagus. Cells for cytology were obtained by brushing. Localized mild inflammation characterized by erythema was found in the gastric antrum. Biopsies were taken with a cold forceps for histology. The examined duodenum was normal. Impression: - Monilial esophagitis. Cells for cytology obtained. - Gastritis. Biopsied. - Normal examined duodenum. Recommendation: - Resume previous diet. - Continue present medications. - Await pathology results. - Return to GI clinic as previously scheduled. Clint Valente, DO 07/18/2017 10:41:14 AM This report has been signed electronically. Note Initiated On: 07/18/2017 10:20 AM I attest to the content of the Intraoperative Record and orders documented therein, exceptions below
[2017-07-18 11:08] VITALS: BP 110/70; PULSE 71; O2SAT 95
--- NOTE | 2017-07-18 11:23 | Anesthesiology Progress Note ---
Anesthesia Post Op Note Date & Time Jul 18, 2017 at 11:23 Vital Signs Pain Intensity: 0 Vital Signs Past 12 Hours Date Time Temp Pulse Resp B/P (MAP) Pulse Ox O2 Delivery O2 Flow Rate FiO2 07/18/17 11:08 71 16 110/70 (83) 95 Room Air 07/18/17 10:53 72 16 120/67 (84) 95 Room Air 07/18/17 10:38 77 16 107/66 (80) 96 Room Air 07/18/17 09:49 36.7 77 16 155/84 (107) 96 Room Air Notes Mental Status: alert / awake / arousable, participated in evaluation Pt Amnestic to Procedure: Yes Nausea / Vomiting: adequately controlled Pain: adequately controlled Airway Patency, RR, SpO2: stable & adequate BP & HR: stable & adequate Hydration State: stable & adequate Anesthetic Complications: no major complications apparent
== END | disposition home or self-care (01) ==
LOC: C.GI 09:10
PROVIDERS: ATTEND Internal Medicine
DX: K29.70 Gastritis, unspecified, without bleeding (principal); B37.81 Candidal esophagitis; I10 Essential (primary) hypertension; E11.9 Type 2 diabetes mellitus without complications; G47.33 Obstructive sleep apnea (adult) (pediatric); E66.01 Morbid (severe) obesity due to excess calories; Z98.890 Other specified postprocedural states; Z90.710 Acquired absence of both cervix and uterus; Z90.89 Acquired absence of other organs; Z88.0 Allergy status to penicillin

== ENCOUNTER → 2017-09-04 | Outpatient (CLI) | payer OTHER ==
[~2017-09-04] MED LIST changes: -FENTANYL CITRATE INJ 50 MCG/1 ML 2 ML VIAL ONE; -GLIP-199 PO; -LIDOCAINE HCL 2% 2 ML VIAL (20MG/ML) ONE; -PROPOFOL IV EMULSION 10 MG/ML 20 ML VIAL IV ONE; -SODIUM CHLORIDE 0.9% 500ML 500 ML IV ONE
== END | disposition home or self-care (01) ==
LOC: C.PATHSPEC 11:59
PROVIDERS: ATTEND Plastic Surgery
DX: L98.9 Disorder of the skin and subcutaneous tissue, unspecified (principal); L90.5 Scar conditions and fibrosis of skin

== ENCOUNTER → 2017-09-30 | Outpatient (CLI) | payer OTHER ==
--- NOTE | 2017-10-01 15:59 | MAMMOGRAPHY REPORT ---
BILATERAL DIGITAL SCREENING MAMMOGRAM TOMOSYNTHESIS WITH CAD: 09/30/2017 CLINICAL HISTORY: Routine screening examination. TECHNIQUE: Breast tomosynthesis in addition to standard 2D mammography was performed. 2-D exaggerat ed lateral CC views were also obtained. Current study was also evaluated with a Computer Aided Detec tion (CAD) system. COMPARISON: Comparison is made to exams dated: 09/09/2016 mammogram, 03/07/2016 mammogram, 02/29/2016 mammogram, 02/15/2015 mammogram, 08/17/2013 mammogram, and 07/07/2012 mammogram - [facility]. BREAST COMPOSITION: The tissue of both breasts is almost entirely fatty. FINDINGS: There is evidence of prior reduction mammoplasty. Stable asymmetry in the slightly superio r far posterior right breast on the MLO view. No new suspicious mass, architectural distortion or cl uster of microcalcifications is seen. IMPRESSION: ACR BI-RADS CATEGORY 1: NEGATIVE There is no mammographic evidence of malignancy. A 1 year screening mammogram is recommended. The pa tient will receive written notification of the results. Approximately 10% of breast cancers are not detected with mammography. A negative mammographic report should not delay biopsy if a clinically suggestive mass is present. Sierra Car M.D. ay/:09/30/2017 17:24:37 Glue Maker Bone: Shante SMALL(R)(M), [facility] letter sent: Normal 1/2 BI-RADS Code: ACR BI-RADS Category 1: Negative
== END | disposition home or self-care (01) ==
LOC: C.MAMM 13:25
PROVIDERS: ATTEND Family Medicine
DX: Z12.31 Encounter for screening mammogram for malignant neoplasm of breast (principal)

== ENCOUNTER → 2018-02-09 | Outpatient (CLI) | payer OTHER ==
[2018-02-09 07:48] LABS: BASO % 0.2 %; BASO ABS # 0.02 K/uL (0-0.2); EOS % 2.2 %; EOS ABS # 0.19 K/uL (0-0.5); HEMATOCRIT 41.3 % (37-47); HEMOGLOBIN 13.5 g/dL (12.0-16.0); IG# 0.02 K/uL (0.00-0.02); LYMPH % 20.6 %; LYMPH ABS # 1.81 K/uL (1.2-3.4); MEAN CELL VOLUME 89.8 fL (80-100); MEAN CORPUSCULAR HEMOGLOBIN 29.3 pg (25-34); MEAN CORPUSCULAR HGB CONC 32.7 g/dl (32-36); MEAN PLATELET VOLUME 9.3 fL (7.4-10.4); MONO % 4.2 %; MONO ABS # 0.37 K/uL (0.11-0.59); NEUT % 72.6 %; NEUT ABS # 6.38 K/uL (1.4-6.5); PLATELET COUNT 242 K/uL (130-400); RED CELL DISTRIBUTION WIDTH CV 13.6 % (11.5-14.5); RED CELL DISTRIBUTION WIDTH SD 44.6 fL (36.4-46.3); WHITE BLOOD COUNT 8.79 K/uL (4.8-10.8)
[2018-02-09 08:14] LABS: ALBUMIN 3.7 gm/dl (3.4-5.0); ALT/SGPT 29 U/L (12-78); AST/SGOT 15 U/L (15-37); BLOOD UREA NITROGEN 7 mg/dl (7-18); CALCIUM 9.1 mg/dl (8.5-10.1); CARBON DIOXIDE 31 mmol/L (21-32); CHOLESTEROL 147 mg/dl (0-200); CREATININE 0.72 mg/dl (0.60-1.20); GLUCOSE 144 mg/dl (70-99); POTASSIUM 4.1 mmol/L (3.5-5.1); SODIUM 140 mmol/L (136-145)
[2018-02-09 08:24] LABS: ALKALINE PHOSPHATASE 90 U/L (45-117); LDL CHOLESTEROL CALCULATED 75 mg/dl; TOTAL PROTEIN 7.5 gm/dl (6.4-8.2)
[2018-02-09 08:52] LABS: HEMOGLOBIN A1C 6.8 % (4.5-5.6)
== END | disposition home or self-care (01) ==
LOC: C.LAB 07:39
PROVIDERS: ATTEND Family Medicine
DX: E11.9 Type 2 diabetes mellitus without complications (principal); E78.5 Hyperlipidemia, unspecified

== ENCOUNTER → 2018-02-17 | Outpatient (CLI) | payer OTHER ==
[~2018-02-17] VITALS: Ht 165.1 cm; Wt 135.7 kg
[2018-02-17 16:36] VITALS: BP 143/85; PULSE 80; Ht 165.1 cm; Wt 135.7 kg
== END | disposition home or self-care (01) ==
LOC: C.NEUR 15:20
PROVIDERS: ATTEND Internal Medicine Pulmonary Disease
DX: G47.33 Obstructive sleep apnea (adult) (pediatric) (principal); E66.9 Obesity, unspecified; E11.9 Type 2 diabetes mellitus without complications

== ENCOUNTER 2022-10-29 05:09 | Observation (INO) ==
--- NOTE | 2022-09-26 09:23 | PAT Medication Instructions ---
Medication Instructions Date of Service September 26, 2022 Home Medications Medication Instructions Recorded sumatriptan succinate 100 mg tablet 100 mg PO .COMPLEX #27 tabs 09/21/21 clotrimazole 1 % topical cream 1 applic topical BID 4 weeks #90 07/17/22 grams simvastatin 20 mg tablet See Rx Instructions .Route 08/01/22 .COMPLEX #90 tabs tirzepatide 12.5 mg/0.5 mL 12.5 mg (0.5 mL) subcut Q7D #2 mL 08/21/22 subcutaneous pen injector (Mounjaro) sumatriptan succinate 100 mg tablet 100 mg PO .COMPLEX clotrimazole 1 % topical cream 1 applic topical BID 4 weeks simvastatin 20 mg tablet See Rx Instructions .Route .COMPLEX tirzepatide 12.5 mg/0.5 mL subcutaneous pen injector (Mounjaro) 12.5 mg (0.5 mL) subcut Q7D nystatin 100,000 unit/gram topical powder 1 applic topical BID PRN ud clobetasol 0.05 % topical ointment 1 applic topical BID PRN ud losartan 50 mg tablet 25 mg PO QPM pilocarpine HCl 5 mg tablet 10 mg PO BID sertraline 50 mg tablet 50 mg PO QAM Continue as directed tirzepatide 12.5 mg/0.5 mL subcutaneous pen injector (Mounjaro) 12.5 mg (0.5 mL) subcut Q7D simvastatin 20 mg tablet See Rx Instructions .Route .COMPLEX STOP taking 24 hours before surgery clotrimazole 1 % topical cream 1 applic topical BID 4 weeks nystatin 100,000 unit/gram topical powder 1 applic topical BID PRN ud clobetasol 0.05 % topical ointment 1 applic topical BID PRN ud DO NOT take the morning of surgery pilocarpine HCl 5 mg tablet 10 mg PO BID Take morning of surgery With a small sip of water, OTHERWISE NOTHING TO EAT OR DRINK AFTER MIDNIGHT: sumatriptan succinate 100 mg tablet 100 mg PO .COMPLEX (if needed) sertraline 50 mg tablet 50 mg PO QAM Take evening before surgery sumatriptan succinate 100 mg tablet 100 mg PO .COMPLEX (if needed) losartan 50 mg tablet 25 mg PO QPM Other Notes If you have any questions please call us at [phone] or [phone] or [phone] or [phone]
--- NOTE | 2022-10-01 14:31 | Anesthesiology Consultation ---
Date of Service October 01, 2022 Assessment & Plan (1) Encounter for pre-operative examination: Chart Review Chart Review: Acceptable Risk for Surgery and Patient seen in Pre Admission Testing Pt is anxious about procedure Hx of difficult intubation with 2014 breast reduction- Glidescope used- anterior vocal cords per patient - Due to comorbidities and BMI- patient is NOT an Outpatient Joint candidate - Check BSG AM DOS Per PAT appt on 10/01/22, patient denies any recent travel or large group activities. Pt is vaccinated for Covid. Will leave to surgeon's discretion if preop Covid testing needed. Educated on importance of using Covid precautions one week prior to surgery History Surgery Operation Date: 10/29/22 12:30 Proposed Procedures p Left Total Knee Arthroplasty - Timur Bustillo MD Height/Weight Height: 5 ft 5 in Weight: 119.7 kg Allergies Allergy/AdvReac Type Severity Reaction Status Date / Time aspirin Allergy Severe THROAT Verified 09/25/22 15:33 CLOSES FACE SWELLED ibuprofen Allergy Severe THROAT Verified 09/25/22 15:33 CLOSED, FACE SWELLED Penicillins Allergy Intermediate Hives Verified 09/25/22 15:33 Medications Home Medications Medication Instructions Recorded Confirmed Last Taken sumatriptan succinate 100 mg tablet 100 mg PO .COMPLEX #27 tabs 09/21/21 09/25/22 Unknown clotrimazole 1 % topical cream 1 applic topical BID 4 weeks #90 07/17/22 09/25/22 Unknown grams simvastatin 20 mg tablet See Rx Instructions .Route 08/01/22 09/25/22 Unknown .COMPLEX #90 tabs blood sugar diagnostic (OneTouch 08/21/22 09/20/22 Unknown Ultra Test strips) lancets (OneTouch UltraSoft 08/21/22 09/20/22 Unknown Lancets) tirzepatide 12.5 mg/0.5 mL 12.5 mg (0.5 mL) subcut Q7D #2 mL 08/21/22 09/25/22 Unknown subcutaneous pen injector (Ethel) nystatin 100,000 unit/gram topical 1 applic topical BID PRN ud 08/29/22 09/25/22 Unknown powder clobetasol 0.05 % topical ointment 1 applic topical BID PRN ud 09/25/22 09/25/22 Unknown losartan 50 mg tablet 25 mg PO QPM 09/25/22 09/25/22 Unknown pilocarpine HCl 5 mg tablet 10 mg PO BID 09/25/22 09/25/22 Unknown sertraline 50 mg tablet 50 mg PO QAM 09/25/22 09/25/22 Unknown Past Medical History Medical History Acid reflux Stable and controlled Brain lesion Per pt, incidental finding Brain MRI @ [place] 2016. No further workup Diabetes mellitus, type 2 Glucose stable per patient Difficult airway for intubation 08/03/14 Bilateral breast reduction = Done under GA. Grade 1 view with Glidescope #4. Glidescope #3 blade used, unable to pass ETT over adenoids, blade #4 used, pt intubated "Anterior vocal cords per patient" Dry mouth On pilocarpine- aggravated by CPAP Hyperlipidemia Hypertension Migraine headache Morbid obesity with BMI of 45.0-49.9, adult Nonalcoholic fatty liver disease DENISE (obstructive sleep apnea) cpap Exercise / Class Metabolic Activity II 4-5 Yardwork/Stairs/Walk up hill (one flight of stairs - no chest pain or SOB ) Past Family History Family History Father Family history of diabetes mellitus Heart disease Hypertension Grandfather (Maternal) Family history of diabetes mellitus Heart disease Hypertension Grandfather (Paternal) Family history of diabetes mellitus Heart disease Hypertension Grandmother (Paternal) Family history of diabetes mellitus Grandmother (Maternal) Family history of diabetes mellitus Mother Breast cancer Other No family history of adverse response to anesthesia Past Surgical History Surgical History History of appendectomy History of arthroscopy of left knee History of section x2 History of colonoscopy with polypectomy History of esophagogastroduodenoscopy (EGD) History of tonsillectomy History of tooth extraction History of total hysterectomy with bilateral salpingo-oophorectomy (BSO) History of tubal ligation Status post breast reduction Status post gastric banding surgery Past Anesthesia History No Hx of Anesthesia Complications, Difficult Airway and No Family Hx of Anesthesia Complications History of PONV No Hx of PONV and No Hx of Motion Sickness Social History Smoking Status: Never smoker Do You Dip or Chew Tobacco: No Hx Alcohol Use: Yes Alcohol type: hard liquor alcohol intake frequency: holidays/special occasions only Hx Substance Use: No substance use type: does not use Review of Systems Patient denies chest pain, shortness of breath, dyspnea on exertion, cough, wheezing, palpitations. No hx of seizures, stroke, DC. No hx of blood clots or blood transfusions Physical Exam Vital Signs VITALS BP 144/82 P 75 TEMP 97.9 SP02 96% RESP 16 Constitutional no acute distress ENMT Mouth: no TMJ clicking Thyromental Distance: > or= 3.5 Finger Breadths (3.5) Mallampati Class: III Missing molars Crowns to molars Neck neck extension not limited Respiratory normal respiratory effort; no respiratory distress Auscultation: lungs clear to auscultation bilaterally; no wheezes Cardiovascular Rate/Rhythm: regular rate and regular rhythm Heart Sounds: no murmur Vessels: no carotid bruit Musculoskeletal Spine: no pain with cervical ROM Extremities: extremities normal to inspection Psychiatric Orientation: alert Lab Results Anesthesia Preop Results Results Anesthesia Widget: WBC 10.05 K/ul (4.8-10.8) 10/01/22 Hgb 13.5 g/dl (12.0-16.0) 10/01/22 Hct 40.3 % (34.1-44.9) 10/01/22 Plt 227 K/uL (130-400) 10/01/22 Na 137 mmol/L (136-145) 10/01/22 K 3.8 mmol/L (3.5-5.1) 10/01/22 Cl 102 mmol/L (98-107) 10/01/22 CO2 28 mmol/L (21-32) 10/01/22 BUN 13 mg/dl (6-23) 10/01/22 Creat 0.70 mg/dl (0.6-1.2) 10/01/22 Glucose Level 104 mg/dl (70-99(Fasting)) H 10/01/22 PT 10.4 Seconds (9.0-12.0) 10/01/22 PTT 29.3 Seconds (21.0-31.0) 10/01/22 INR 1.0 (0.9-1.1) 10/01/22 HA1c 5.7 % (4.5-5.6) H 10/01/22 Blood Type O Positive 10/01/22 Antibody Screen NEGATIVE 10/01/22 Testing Electrocardiogram Date: 10/01/22 Findings: + NSR @ (72bpm ) Incomplete RBBB When compared to EKG from Jul 01, 2017- no significant change was found Chest X-Ray Date: 10/01/22 Findings: + NAD COVID-19 Risk Screen Screening Information COVID-19 Screen Date: 10/01/22 Exposure 21 Days Family/Household +COVID Last 21 Days: No Exposure 10 Days Any COVID Exposure Last 10 Days: No Symptoms Last 10 Days Experienced COVID Sx Last 10 Days: No + COVID 0-90 Days COVID + in Last 0-90 Days: No Risk Plan COVID Risk Plan: No Risk Identified Patient Education COVID Preop Screening Education Complete: Yes
--- NOTE | 2022-10-25 11:51 | History and Physical Report ---
DATE OF ADMISSION: 10/29/2022. CHIEF COMPLAINT: Bilateral knee pain and discomfort, left side greater than right. HISTORY OF PRESENT ILLNESS: The patient is a 57-year-old female who presents for surgical treatment of her left knee. She has got a long history of knee problems, followed by ____ over [facility] for the past 6-7 years. She has been through extensive conservative treatment including steroid shots and v iscosupplementation, which have become less successful over time. Both knees are quite a bit. She i s limiting her activity due to her knee pain. She has lost some weight, but having more difficulty l osing any additional weight due to her limited mobility. She would like to have her knees fixed. Brian penaloza did lose 33 pounds and followed by ____ in the weight loss program. PAST MEDICAL HISTORY: Significant for: 1. Diabetes. 2. Elevated cholesterol. 3. Hypertension. 4. Obesity, BMI of 45. PAST SURGICAL HISTORY: Includes: 1. Appendectomy. 2. Tonsillectomy. 3. x2. 4. Hysterectomy. 5. Laparoscopic band surgery. 6. Breast reduction. ALLERGIES: ASPIRIN, ADVIL, PENICILLIN. CURRENT MEDICATIONS: Include: 1. Losartan. 2. Sertraline. 3. Medical marijuana. 4. Pilocarpine. SOCIAL HISTORY: A 57-year-old female. She lives in [place]. She works at the [employer]. Rare al Peer60ol intake. She is . Does not smoke. FAMILY HISTORY: Significant for heart disease, breast cancer, diabetes. REVIEW OF SYSTEMS: Significant for well-controlled diabetes. No chest pain or shortness of breath. No history of DVT or PE. PHYSICAL EXAMINATION: GENERAL: Shows a pleasant middle-aged female. Looks to be in reasonably good health. HEENT: Benign. NECK: Supple. No lymphadenopathy. LUNGS: Clear to auscultation. HEART: Has a regular rate and rhythm. ABDOMEN: Soft, nontender, nondistended. EXTREMITIES: Grossly neurovascularly intact except as follows. Examination of both knees revealed patient ambulates independently. She walks with minimal waddling gait. Examination of the left knee reveals a varus alignment. Moderate soft tissue envelope. Tende r with medial joint line. Range of motion is 5-120. No instability. No pain with hip motion. Exam ination of the right knee reveals similar varus alignment. She is tender with medial joint line. Sm all knee effusion. Range of motion 5-120. X-RAYS: We got x-rays of both knees that reveal advanced bilateral knee DJD. She has got complete l oss of medial joint space in both knees. The left knee is a little bit worse than the right. She go t osteophytes mostly medially. ASSESSMENT: A 57-year-old female with multiple medical comorbidities including diabetes, elevated ch olesterol, hypertension, and obesity with bilateral knee advanced DJD. She has failed conservative t reatment. She elected to proceed with knee replacement. PLAN: We are going to proceed with left total knee replacement. The risks and benefits of this proc edure were explained to the patient and include but not limited to DVT, PE, , infection, neurolo gical injury, vascular injury, bleeding problem, pain, limited range of motion, stiffness, failure to relieve her symptoms, incomplete relief of symptoms, etc. The patient understands and desires to pr oceed. Informed consent was obtained. She is going to continue on a weight loss program. Unfortunately, she cannot take aspirin or NSAIDs due to her gastric issues and we will use Xarelto postoperatively for DVT prophylaxis. Job ID: [id number]
[2022-10-29] MEDS ORDERED: ACETAMINOPHEN 500 MG TAB PO SCH (06:00)
[2022-10-29] MEDS ORDERED: LR 500ML BOLUS, THEN 15ML/HR IV SCH (06:00)
[2022-10-29] MEDS ORDERED: METOCLOPRAMIDE HCL 10 MG TABLET PO SCH (06:00)
[2022-10-29] MEDS ORDERED: Scopolamine 1 MG TDSY TD SCH (06:00)
[2022-10-29] MEDS ORDERED: BUPIVACAINE LIPOSOME/PF 266 MG, BUPIVACAINE/EPINEPHRINE 50 ML, SODIUM CHLORIDE 0.9% 30 ... INFIL SCH (06:00)
[2022-10-29] MEDS ORDERED: CeleBREX 200 MG CAP PO SCH (06:00)
[2022-10-29] MEDS ORDERED: FAMOTIDINE 20 MG TAB PO SCH (06:00)
[2022-10-29] MEDS ORDERED: TRANEXAMIC ACID 1,000 MG **IV Intra-op IV SCH (06:00)
[2022-10-29] MEDS ORDERED: ceFAZolin 2000MG 2,000 MG/15 ML SYR IV SCH (06:00)
[2022-10-29] MEDS ORDERED: LR 60ML/HR IV SCH (06:00)
[2022-10-29] MEDS ORDERED: fentaNYL citrate 100 MCG/2 ML VIAL ONE (06:24)
[2022-10-29] MEDS ORDERED: PROPOFOL IV EMULSION 10 MG/ML 20 ML VIAL IV ONE (06:24)
[2022-10-29] MEDS ORDERED: MIDAZOLAM HCL 1 MG/ML 2ML VIAL ONE ×2 (06:24→06:48)
[2022-10-29] MEDS ORDERED: ONDANSETRON INJ 2 MG/ML 2 ML VIAL ONE (06:25)
[2022-10-29] MEDS ORDERED: LIDOCAINE 2% MPF LOCAL 5 ML VIAL INFIL ONE (06:25)
[2022-10-29] MEDS ORDERED: BUPIVACAINE 0.5 % 5 MG/1 ML PF 10ML VIAL ONE (06:26)
[2022-10-29] MEDS ORDERED: ROPIVACAINE 0.5% 5 MG/ML 30 ML VIAL ONE (06:26)
[2022-10-29] MEDS ORDERED: SODIUM CHLORIDE 0.9% PF 50 ML VIAL ONE (06:35)
[2022-10-29] MEDS ORDERED: BUPIVACAINE/EPINEPHRINE 0.25% 1:200,000 30 ML VIAL ONE (06:35)
[2022-10-29] MEDS ORDERED: BUPIVACAINE LIPOSOME 1.3% 266 MG/20 ML VIAL ONE (06:35)
[2022-10-29] MEDS ORDERED: ONDANSETRON INJ 2 MG/ML 2 ML VIAL IV PRN ×2 (06:47→10:31)
[2022-10-29] MEDS ORDERED: fentaNYL citrate 100 MCG/2 ML VIAL IV PRN (06:47)
[2022-10-29] MEDS ORDERED: ATROPINE SULFATE 0.1 MG/ML 10ML SYR IV PRN (06:47)
[2022-10-29] MEDS ORDERED: ePHEDrine sulfate 50 MG/ML AMP IV PRN (06:47)
[2022-10-29] MEDS ORDERED: HYDROmorphone INJ 2 MG/ML SYR/VIAL IV PRN (06:47)
[2022-10-29] MEDS ORDERED: ceFAZolin 2,000 MG/15 ML IV PUSH IV ONE (06:55)
--- NOTE | 2022-10-29 07:03 | History & Physical Bridge Note ---
Date of Service October 29, 2022 History & Physical Bridge Note I have examined the patient, reviewed the History & Physical and in the interval since the performance of the History & Physical I have noted the following changes of clinical significance: no changes noted
[2022-10-29] MEDS ORDERED: PHENYLEPHRINE HCL 10 MG/ML VIAL ONE (07:39)
--- NOTE | 2022-10-29 08:59 | Operative Report ---
PG Post Operative Report Pre & Post Diagnosis Operation Date: 10/29/22 07:00 Pre-Op Diagnosis: Left Knee Degenerative Joint Disease Post-Op Diagnosis: Left Knee Degenerative Joint Disease I identified the patient and participated in the time-out.: Yes Procedure Operation Date: 10/29/22 07:00 Actual Procedures p Left Total Knee Arthroplasty, Cemented(Left) - Timur Bustillo MD Surgeon Timur Bustillo MD Channel Executive Isaiah Gee PA-C Estimated Blood Loss 50 Findings Consistent with Post-Op Diagnosis Operative findings were advanced left knee DJD. She had extensive grade 4 [id number] disease the medial femoral condyle medial tibial plateau. She did have some mild fairly focal grade 4 changes of the lateral and patellofemoral compartments. She had a varus deformity to her knee with a moderate-sized knee joint effusion. Fluids 1200 cc Specimens Left knee sent for pathology Drains None Anesthesia Type Spinal MAC Complications none Disposition Accompanied Patient To Recovery: No Indications Patient is 57-year-old female has a long history of bilateral knee pain discomfort describes gotten worse over time patient been to extensive conservative treatment for many years that became less successful over time. She elected proceed with surgical treatment the left knee is bothering more than the right. Description of Procedure Operative implants consist of: 1 Biomet Vanguard size 65 left posterior stabilized femoral component. 2. Biomet size 71 tibial tray. 3. 10 mm posterior stabilized polyethylene insert. 4. 31 x 8 all Paller patella. The patient was taken the operating, identified, placed on the operating table supine position protectors were properly padded. IV antibiotics tried by anesthesia team. A spinal anesthetic and abductor canal block had provided in the holding area. A Vogt catheter was placed in sterile fashion. Left thigh tent was then placed in the left lower extremity was then prepped and draped in usual sterile fashion. The left leg was elevated exsanguinated with use of an Esmarch and the tourniquet was set at 300 mmHg. An anterior posterior left knee was then performed to longitudinal incision centered over the patella. Sharp dissection was carried through subcutaneous tissue down the extensor mechanism. A medial parapatellar arthrotomy incision was made. Some subperiosteal dissection was carried out medially. The fat pad was resected from Neath patella tendon. Lateral patellofemoral ligament was released. Patella subluxated laterally and the knee was flexed. The osteophytes were taken off distal femur. ACL and PCL were then released from distal femur and the tibia subluxated anteriorly. The external tibial alignment jig was then placed in the interface of the tibia and adjusted 14 mm medially. Proximal tibial cut was made remove about 2 mm of bone from the most deficient aspect medial tibial plateau. Some osteophytes taken off medial and posterior medially. The tibia was then sized to a size 71. Attention drawn the femur. The distal femur was reamed with a sharp drop with intramedullary canal was suction. A left 5 degree distal femoral cutting block was pinned in place. Distal femoral cut was made to take an additional 2 mm of bone off distal femur. The femur was then sized to a size 65. Sized almost exactly to a 65. The AP cutting block was pinned parallel to the epicondylar axis which was 4 degrees of external rotation. Anterior cut, anterior chamfer, posterior cut, posterior chamfer cuts were made. The box cutting guide was placed in just slight lateral box cut was made. The knee was flexed. The remnants of the medial lateral menisci were excised with the osteophytes taken off the posterior aspect of femur. A trial femoral component was placed for the tibial tray was pinned in maximum external rotation and the drill and stem punch used to create defect in proximal tibia for the tibial tray. The knee was then trialed with a 10 mm insert fit most appropriately. Attention drawn the patella. The patella was cleaned of all soft tissues. Patella thickness measured 22 mm in thickness. Was cut down to 13. Was sized to a size 31 patella. The lug holes were drilled for the 31 patella. Lateral osteophytes removed. Patella button was placed. Knee was taken through range of motion patella tracked nicely with no thumbs test. Attention drawn to placing permanent components. Nupathe all trial components were removed. Bone plug was placed in the distal femur limit blood loss. Double batch Palacos G cement was mixed. A Biomet Vanguard size 65 left posterior stabilized femoral component, size 71 tibial tray, a 10 mm posterior stabilized polyethylene insert, and a 31 x 8 all Paller patella then cemented in place. Knee was brought out into full extension total cement hardened. Final cement check was then performed. Pericapsular tissues were injected with total of 100 cc of combination of 20 cc of Exparel, 30 cc normal saline, 50 cc of quarter percent Marcaine with epinephrine. Patient did receive 1 g tranexamic acid but the tourniquet was then let down for final turn time of 56 minutes. Hemostasis reduced electrocautery. Extensor mechanism closed with combination 1 PDS suture #1 Vicryl suture in a [id number] fa shion. Extensor mechanism checked found to be intact with subcutaneous tissue then closed with 2 Dexon suture in buried interrupted fashion skin was closed skin christine. Leg was then cleaned and dried a sterile dressing was Xeroform, 4 x 4's, sterile cast padding, Josesito bandage were applied. Patient then transferred to the recovery room in stable condition. Patient tolerated procedure well and there were no complications. Isaiah Gee, my physician laboratory chemical assistant, was present for the entire procedure. His assistance was essential and required for appropriate patient positioning, prepping and draping, surgical exposure, performing the technical details of the operation, placement the implants, closure of the wound, and placement of the sterile bandage. I attest to the content of the Intraoperative Record and any orders documented therein. Any exceptions are noted below.
[2022-10-29] MEDS ORDERED: diphenhydrAMINE Capsule 25 MG CAP PO PRN (10:31)
[2022-10-29] MEDS ORDERED: METOCLOPRAMIDE HCL INJ 5 MG/ML 2 ML VIAL IV PRN (10:31)
[2022-10-29] MEDS ORDERED: NALOXONE HCL 0.4 MG/1 ML VIAL/CARP IV PRN (10:31)
[2022-10-29] MEDS ORDERED: PHARMACY GLYCEMIC MGMT CONSULT PRN (10:31)
[2022-10-29] MEDS ORDERED: MAGNESIUM HYDROXIDE SUSP 30 ML UDC PO PRN (10:31)
[2022-10-29] MEDS ORDERED: NON-FORMULARY MEDICATION (Amino Acids Capsule) PO SCH (10:31)
[2022-10-29] MEDS ORDERED: bisacodyL 10 MG SUPP PR PRN (10:31)
[2022-10-29] MEDS ORDERED: ALUMINUM/MAGNESIUM SUSP 30 ML UDC PO PRN (10:31)
[2022-10-29] MEDS ORDERED: NYSTATIN POWDER 15GM BTL EXT PRN (10:31)
[2022-10-29] MEDS: ALLERGY Noted to ORDERED Medication SCH ×2 (10:36→10:37)
--- NOTE | 2022-10-29 10:38 | Anesthesiology Progress Note ---
Date of Service October 29, 2022 Anesthesia Post Procedure Vital Signs Vital Signs: Temp Pulse Pulse Resp BP Pulse Ox O2 Del Method 10/29/22 10:15 67 15 126/72 94 Room Air 10/29/22 10:05 36.1 C L 64 14 122/66 95 Room Air 10/29/22 09:55 63 18 119/70 95 Room Air 10/29/22 09:45 70 14 119/71 97 Room Air 10/29/22 09:35 65 16 135/77 96 Room Air 10/29/22 09:25 67 18 133/77 97 Room Air 10/29/22 09:15 73 14 134/71 93 Room Air 10/29/22 09:05 76 19 133/70 100 Oxymask 10/29/22 08:56 36.1 C L 87 16 126/64 100 Oxymask 10/29/22 05:37 36.8 C 73 20 152/99 H 98 Room Air O2 Flow Rate 10/29/22 10:15 10/29/22 10:05 10/29/22 09:55 10/29/22 09:45 10/29/22 09:35 10/29/22 09:25 10/29/22 09:15 10/29/22 09:05 5 10/29/22 08:56 5 10/29/22 05:37 Transfer of Care Handoff Completed per policy Notes Mental Status: alert / awake / arousable and participated in evaluation Patient Amnestic to Procedure: Yes Nausea / Vomiting: adequately controlled Pain: adequately controlled Airway Patency, RR, SpO2: stable & adequate BP & HR: stable & adequate Hydration State: stable & adequate Neuraxial Anesthesia: was administered and sensory block is resolving Anesthetic Complications: no major complications apparent and Pt Satisfied with anesthetic care
[2022-10-29] MEDS: SODIUM CHLORIDE 0.9% 1000ML 1,000 ML IV SCH ×2 (10:57→20:51)
[2022-10-29] MEDS ORDERED: CLOBETASOL PROPIONATE 0.05% OINT 15 GM TUBE EXT PRN (10:58)
[2022-10-29] MEDS ORDERED: SUMAtriptan succinate 100 MG TAB PO PRN (11:00)
[2022-10-29] MEDS ORDERED: GLUCAGON FOR INJ 1 MG VIAL IM PRN (11:15)
[2022-10-29] MEDS ORDERED: GLUCOSE 10 TAB/TUBE PO PRN (11:15)
[2022-10-29] MEDS ORDERED: CARBOHYDRATES FOR HYPOGLYCEMIA PO PRN (11:15)
[2022-10-29] MEDS ORDERED: GLUCOSE 40% GEL 15 GM TUBE PO PRN (11:15)
[2022-10-29] MEDS ORDERED: DEXTROSE 50% 50 ML SYRINGE IV PRN (11:15)
--- NOTE | 2022-10-29 11:20 | Pharmacy Report ---
Glycemic Ortho Sign Off Note - Date of Service October 29, 2022 - Scope Glycemic Pharmacist consulted for glycemic control and to write orders per [facility] inpatient glycemic control protocol. - Objective Accuchecks BSG (last 24hrs):: 10/29/22 10/29/22 05:28 09:00 POC Glucose 114 H 127 H - Assessment * Outpatient, the patient is maintained on non-insulin subcutaneous GLP-1 agonistwith excellent control per recent A1c * Recommended regimen for inpatient use is SQ insulin * Low stress, adjusted body weight based insulin dosing appropriate since patient has minimal risk factors for insulin resistance (i.e. no steroids). * Appropriate to DC insulin and resume outpatient antidiabetic regimen at discharge * Goal is to maintain BSGs <200 mg/dl (ideally <150 mg/dl) to prevent post op complications - Plan For Inpatient Glycemic Control * Basal insulin * Not needed based on A1c, pre-op BSGs, and minimal risk factors for insulin resistance * Bolus insulin * Utilize low stress weight based NovoLog parameters per scale ACHS * Pharmacy has entered glycemic orders and is signing off of the glycemic consult. We will no longer be making adjustments to inpatient regimen. Please feel free to re-consult if needed. Thank you.
[2022-10-29] MEDS: CLOTRIMAZOLE 1% CR 15 GM TUBE TOP SCH ×2 (12:03→20:52)
[2022-10-29] MEDS: PILOCARPINE HCL 5 MG TABLET PO SCH ×2 (12:07→20:55)
[2022-10-29] MEDS: DOCUSATE SODIUM 100 MG CAP PO SCH ×2 (12:07→20:54)
[2022-10-29] MEDS: MULTIVITAMIN TAB PO SCH (12:08)
--- NOTE | 2022-10-29 12:37 | XRay Report ---
XR knee LT 1 or 2V routine CLINICAL HISTORY: Postoperative evaluation. COMPARISON: Knee radiographs September 19, 2022. FINDINGS: Alignment of the total left knee arthroplasty is anatomic. There is no periprosthetic frac ture or unexpected radiopaque foreign body. There are skin christine. IMPRESSION: Expected findings following total left knee arthroplasty. ACT 112: Negative or not required by law. Electronically signed by: Will Wilson M.D. 10/29/2022 12:35 PM
[2022-10-29] MEDS: INSULIN ASPART PER UNIT SC SCH ×3 (12:53→20:54)
[2022-10-29] MEDS: oxyCODONE HCL IR 5 MG TAB (IMMEDIATE RELEASE) PO PRN ×2 (13:24→21:38)
[2022-10-29] MEDS: ACETAMINOPHEN 500 MG TAB PO SCH ×2 (13:25→21:39)
[2022-10-29] MEDS ORDERED: TRANEXAMIC ACID / 0.7% NACL 1,000 MG/100 ML BAG IV SCH (15:00)
[2022-10-29] MEDS: Scopolamine CHECK PATCH PLACEMENT SCH ×2 (15:06→23:22)
[2022-10-29] MEDS: ceFAZolin 2000MG 2,000 MG/15 ML SYR IV SCH ×2 (15:06→22:22)
[2022-10-29] MEDS: HYDROmorphone INJ 0.5 MG/0.5 ML SYR IV PRN ×2 (15:15→20:45)
[2022-10-29] MEDS: ASCORBIC ACID 500 MG TAB PO SCH (17:25)
[2022-10-29] MEDS ORDERED: SENNA 8.6 MG TAB PO SCH (21:00)
[2022-10-29] MEDS ORDERED: LOSARTAN POTASSIUM 25 MG TAB PO SCH (21:00)
[2022-10-30] MEDS: HYDROmorphone INJ 0.5 MG/0.5 ML SYR IV PRN ×3 (00:48→10:01)
[2022-10-30] MEDS: oxyCODONE HCL IR 5 MG TAB (IMMEDIATE RELEASE) PO PRN ×2 (01:47→07:53)
[2022-10-30] MEDS: ACETAMINOPHEN 500 MG TAB PO SCH (05:52)
[2022-10-30 06:06] LABS: Hematocrit (blood only) 39.2 % (34.1-44.9); Hemoglobin 12.8 g/dl (12.0-16.0); Mean Corpuscular Hemoglobin 29.8 pg (25.0-34.0); Mean Corpuscular Hgb Conc 32.7 g/dL (32.0-36.0); Mean Corpuscular Volume 91.4 fL (80.0-100.0); Mean Platelet Volume 9.6 fL (9.4-12.3); Platelet Count 246 K/uL (130-400); RDW Coefficient of Variation 13.1 % (11.5-14.5); Red Blood Count 4.29 M/uL (3.93-5.22); White Blood Count 13.62 K/ul (4.8-10.8)
[2022-10-30 06:59] LABS: BUN Creatinine Ratio 12.5 (10-20); Calcium 8.8 mg/dl (8.5-10.1); Creatinine Clr Calc Pharmacy 99.6 ml/min; Est GFR (African American) 94.9 ml/min; Est GFR (Non-African American) 81.8 ml/min; Potassium 4.3 mmol/L (3.5-5.1)
[2022-10-30] MEDS: Scopolamine CHECK PATCH PLACEMENT SCH (07:13)
[2022-10-30] MEDS: DOCUSATE SODIUM 100 MG CAP PO SCH (07:54)
[2022-10-30] MEDS: CLOTRIMAZOLE 1% CR 15 GM TUBE TOP SCH (07:54)
[2022-10-30] MEDS: ASCORBIC ACID 500 MG TAB PO SCH (07:54)
[2022-10-30] MEDS: PILOCARPINE HCL 5 MG TABLET PO SCH (07:54)
[2022-10-30] MEDS: MULTIVITAMIN TAB PO SCH (07:55)
[2022-10-30] MEDS: INSULIN ASPART PER UNIT SC SCH (08:38)
[2022-10-30] MEDS ORDERED: RIVAROXABAN 10 MG TABLET PO SCH (09:00)
--- NOTE | 2022-10-30 14:31 | Progress Notes ---
DATE OF SERVICE: 10/30/2022. SUBJECTIVE: A 57-year-old female postop day #1 from left knee replacement. She is doing pretty well . Therapy went pretty well. She is hoping to go home. No chest pain or shortness of breath. Not f eeling dizzy or lightheaded. OBJECTIVE: VITAL SIGNS: Temperature 36.8. Vital signs stable. PHYSICAL EXAMINATION: GENERAL: Shows a pleasant middle-aged female. She is lying in bed, looks pretty comfortable. LUNGS: Clear to auscultation. HEART: Regular rate and rhythm. ABDOMEN: Soft, nontender, nondistended. EXTREMITIES: Grossly neurovascularly intact except as follows. Examination of the left leg reveals the dressing to be clean, dry, and intact. She can dorsiflex and plantarflex her foot appropriately. She can do a straight leg raise with a quite a bit of effort. She is neurologically intact. LABORATORY DATA: Hemoglobin is 12.8. Hematocrit 39.2. White cell count slightly elevated at 13.62. Electrolytes are stable. ASSESSMENT: A 57-year-old female postop day #1 from left knee replacement. Doing pretty well. Pain is controlled. Therapy went well. She is hoping to go home. PLAN: 1. DVT prophylaxis includes thigh-high TEDs, SCDs, and Xarelto for 30 days. 2. PT, OT, weightbear as tolerated. Left total knee protocol. 3. Pain control, doing okay with current pain regimen. 4. Disposition: Plan to discharge to home with some home health today. Job ID: [id number]
--- NOTE | 2022-11-01 11:35 | Discharge Summary ---
Date of Service November 01, 2022 Discharge Data Procedures Performed Operation Date: 10/29/22 07:00 Actual Procedures p Left Total Knee Arthroplasty, Cemented(Left) - Timur Bustillo MD Hospital Course (1) Status post total left knee replacement: This is a 57 year old patient admitted on 10/29/22 and underwent total knee arthroplasty. She tolerated the procedure well and there were no complications. Transferred to the PACU post op and later to the orthopedic floor for further care. She was given ancef for antibiotic prophylaxis. She was also given REID stockings, SCDs, and xarelto for DVT prophylaxis. Hemoglobin, hematocrit, and vital signs were monitored during her hospital stay and remained stable. Did not require any blood transfusions. There were no complications during her hospital stay. By post op day #1 the patient was tolerating a diabetic diet, pain was reasonably controlled with oral pain medicine, and she was participating in physical therapy. On post op day #1 the patient was discharged home and set up with home health care. She was given printed discharge instructions including prescriptions for extra strength tylenol, xarelto, zofran, senokot, and oxycodone. Continue physical therapy, weight bearing as tolerated. Continue REID stockings. Follow up approximately 2 weeks post op or sooner if there are problems or concerns. Coding Level of Care Code None Diagnoses Status post total left knee replacement Z96.652
== END 2022-10-30 11:58 | disposition home health service (06) ==
LOC: 3E 05:09 → ASU 05:09